=== PATIENT | male | born 1960 | race Caucasian/White ===

== ENCOUNTER 2022-01-15 00:57 | Outpatient (CLI) | payer MEDICAID | END 2022-01-15 00:58 | disposition critical access hospital (66) | LOC: EMS 00:57 | DX: R73.9 Hyperglycemia, unspecified (principal) | CPT/HCPCS: A0425; A0429; A0999 ==

== ENCOUNTER 2022-01-15 21:05 | Outpatient (CLI) | payer MEDICAID | END 2022-01-15 21:06 | disposition critical access hospital (66) | LOC: EMS 21:05 | DX: R73.9 Hyperglycemia, unspecified (principal) | CPT/HCPCS: A0425; A0427; A0999 ==

== ENCOUNTER 2022-01-15 21:26 | Emergency (ER) | payer MEDICAID ==
[2022-01-15] MEDS ORDERED: metFORMIN 500 MG TABLET PO STA (21:38)
[2022-01-15] MEDS ORDERED: SODIUM CHLORIDE 0.9% 1,000 ML IV STA (21:39)
[2022-01-15] MEDS ORDERED: INSULIN REGULAR HUMAN 100 UNIT/1 ML 10 ML MDV IVP STA ×3 (21:39→23:21)
--- NOTE | 2022-01-15 22:07 | ED Physician Documentation ---
History of Present Illness - Stated complaint Stated Complaint: HYPERGLYCEMIA - Chief complaint Chief Complaint: General - History obtained from History obtained from: Patient, EMS - Additonal information Additional information: Patient returns to the emergency department via EMS from [facility] to for chief complaint of hyperglycemia. The patient has a history of diabetes but has been off of his metformin since October, due to getting out of detox and going back to drinking alcohol. Patient states at that time "he just did not care" and so he did not take his medication. 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 The patient states that he has been generally feeling tired and had stomachaches but but this is not any worse today than it has been for the last several weeks. The patient has been at [facility] to since the and was sent here from [place] for this, as it is the only facility with an available bed. Review of the patient's records reveals he was treated with insulin and metformin yesterday. Review of Systems Ten Systems: 10 systems reviewed and negative Constitutional: reports: Reviewed and negative Eyes: reports: Reviewed and negative Ears: reports: Reviewed and negative Nose: reports: Reviewed and negative Throat: reports: Reviewed and negative Cardiac: reports: Reviewed and negative Respiratory: reports: Reviewed and negative GI: reports: Abdominal Pain : reports: Reviewed and negative Skin: reports: Reviewed and negative Musculoskeletal: reports: Reviewed and negative Neurologic: reports: Reviewed and negative Psychiatric: reports: Reviewed and negative Endocrine: reports: Reviewed and negative Immunocompromised: reports: Reviewed and negative PD PAST MEDICAL HISTORY - Past Medical History Cardiovascular: Hypertension Endocrine/Autoimmune: Type 2 diabetes - Past Surgical History Past Surgical History: No - Present Medications Home Medications: Ambulatory Orders Medication Instructions Recorded Confirmed metFORMIN [Glucophage] 500 mg PO BIDWM #60 tablet 01/15/22 - Allergies Allergies/Adverse Reactions: Allergies Allergy/AdvReac Type Severity Reaction Status Date / Time No Known Drug Allergies Allergy Verified 01/15/22 02:08 - Social History Does the pt smoke?: No Smoking Status: Never smoker Does the pt drink ETOH?: Yes Does the pt have substance abuse?: No - Immunizations Immunizations are current?: Yes - POLST Patient has POLST: No PD ED PE NORMAL - Vitals Vital signs reviewed: Yes - General General: Alert and oriented X 3, No acute distress - HEENT HEENT: Atraumatic, PERRL, EOMI, Moist mucous membranes - Neck Neck: Supple, no meningeal sign - Cardiac Cardiac: RRR, No murmur, Strong equal pulses - Respiratory Respiratory: No respiratory distress, Clear bilaterally - Abdomen Abdomen: Soft, Non tender, Non distended - Derm Derm: Warm and dry - Extremities Extremities: No deformity - Neuro Neuro: Alert and oriented X 3 - Psych Psych: Normal mood, Normal affect Results - Vitals Vitals: Vital Signs - 24 hr 01/15/22 01/15/22 01/15/22 21:32 21:34 23:34 Temperature 36.8 C 36.8 C Heart Rate 94 94 78 Respiratory 18 18 16 Rate Blood Pressure 136/83 H 136/83 H 140/80 H O2 Saturation 100 100 100 01/16/22 00:38 Temperature 36.4 C L Heart Rate 89 Respiratory 16 Rate Blood Pressure 137/86 H O2 Saturation 97 Oxygen O2 Source Room air - Labs Labs: Laboratory Tests 01/15/22 21:56 Sodium 138 Potassium 3.9 Chloride 101 Carbon Dioxide 28 Anion Gap 9.0 BUN 10 Creatinine 0.8 Estimated GFR (MDRD) 98 Glucose 513 H* Calcium 8.5 PD MEDICAL DECISION MAKING - ED course Complexity details: reviewed results, re-evaluated patient, considered differential, d/w patient ED course: The patient was given an initial dose of insulin 12 units IV plus metformin 500 mg p.o. His laboratory studies showed a blood glucose of 513 prior to these treatments but otherwise, blood work was unremarkable. His repeat fingerstick glucose was 440 about 30 minutes later. A second dose of regular insulin 12 units was given and the patient's blood sugar was just under 400 approximately 40 minutes later. A third dose of insulin 12 units was given and the patient's blood sugar was down to 200 on reevaluation. He was found to be feeling much better and felt he was stable for discharge. We have discussed the importance of getting his metformin picked up at the pharmacy tomorrow and getting on his medication. He is also advised to stop drinking juice instead, drink water. Recommendation has been made for I do it to provide a more diabetic friendly diet for this patient and any others who may need to control her blood sugars, due to diabetes. We have discussed the usual indications for return. Departure - Departure Disposition: Home, Self Care Clinical Impression: Diabetes mellitus with hyperglycemia Qualifiers: Diabetes mellitus type: type 2 Diabetes mellitus lamp developer insulin use: without fdc use Qualified Code(s): E11.65 - Type 2 diabetes mellitus with hyperglycemia Condition: Stable Instructions: ED Hyperglycemia Diabetic Comments: [facility] This is because you have been off your metformin and has been continuing to consume sugary things like juice. It is very important that you talk to the staff at [facility] about getting your metformin filled as soon as possible, otherwise your sugars will continue to go high during the day because you are off your meds. It is also important that you make good decisions about what you are eating and drinking. You should avoid anything that is very sugary, which would put your blood sugar up. Please talk to the staff at [facility] to see if they can arrange for a diabetic diet for you. Your blood sugar is now down to 200, and will likely continue to moderate over the night. Please schedule a follow-up appointment with your primary doctor as soon as you return home. Please go tomorrow to fill the prescription for metformin that you were given last night. Discharge Date/Time: 01/16/22 00:38
[2022-01-15 22:15] LABS: CALCIUM 8.5 mg/dL (8.5-10.3); CREATININE 0.8 mg/dL (0.6-1.2); POTASSIUM 3.9 mmol/L (3.5-5.0)
[2022-01-16 00:40] VITALS: BP 137/86
== END 2022-01-16 00:38 | disposition home or self-care (01) ==
LOC: EDUNIT# → ED 21:26
DX: E11.65 Type 2 diabetes mellitus with hyperglycemia (principal); Z79.84 Long term (current) use of oral hypoglycemic drugs
CPT/HCPCS: 36415; 80048; A9270; J1815